=== PATIENT | female | born 1970 | race Two or more races ===

== ENCOUNTER → 2024-06-26 | Outpatient (BNVA) | payer MEDICAID, SELFPAY | END | disposition home or self-care (01) | PROVIDERS: PCP Nurse Practitioner Primary Care; Referring Provider Nurse Practitioner Primary Care; Visit Provider Nurse Practitioner Primary Care | DX: M25.561 Pain in right knee (principal); G89.29 Other chronic pain; M25.562 Pain in left knee; M79.671 Pain in right foot; M17.0 Bilateral primary osteoarthritis of knee | CPT/HCPCS: 20610; 99214; J3301; J3490 ==

== ENCOUNTER → 2024-07-09 | Outpatient (BNVA) | payer MEDICAID, SELFPAY | END | disposition home or self-care (01) | PROVIDERS: PCP Nurse Practitioner Primary Care; Referring Provider Nurse Practitioner Primary Care; Visit Provider Nurse Practitioner Primary Care | DX: L50.9 Urticaria, unspecified (principal) | CPT/HCPCS: 99213 ==

== ENCOUNTER → 2024-07-10 | Outpatient (BNVA) | payer MEDICAID, SELFPAY | END | disposition home or self-care (01) | PROVIDERS: PCP Nurse Practitioner Family; Referring Provider Nurse Practitioner Family; Visit Provider Nurse Practitioner Family | DX: Z30.42 Encounter for surveillance of injectable contraceptive (principal) | CPT/HCPCS: 96372; 99214; J1050 ==

== ENCOUNTER → 2024-08-07 | Outpatient (BNVA) | payer MEDICAID, SELFPAY | END | disposition home or self-care (01) | PROVIDERS: PCP Nurse Practitioner Family; Referring Provider Nurse Practitioner Family; Visit Provider Nurse Practitioner Family | DX: J06.9 Acute upper respiratory infection, unspecified (principal); E11.9 Type 2 diabetes mellitus without complications; E66.9 Obesity, unspecified; Z68.35 Body mass index [BMI] 35.0-35.9, adult | CPT/HCPCS: 87804; 87811; 99213 ==

== ENCOUNTER → 2024-09-25 | Outpatient (BNVA) | payer MEDICAID, SELFPAY | END | disposition home or self-care (01) | PROVIDERS: PCP Nurse Practitioner Family; Referring Provider Nurse Practitioner Family; Visit Provider Nurse Practitioner Family | DX: Z30.42 Encounter for surveillance of injectable contraceptive (principal) | CPT/HCPCS: 81025; 96372; 99214; 99215; J1050 ==

== ENCOUNTER → 2024-11-02 | Outpatient (BNVA) | payer MEDICAID, SELFPAY | END | disposition home or self-care (01) | PROVIDERS: PCP Nurse Practitioner Family; Referring Provider Nurse Practitioner Family; Visit Provider Nurse Practitioner Family | DX: E11.9 Type 2 diabetes mellitus without complications (principal); E66.9 Obesity, unspecified; Z12.11 Encounter for screening for malignant neoplasm of colon | CPT/HCPCS: 99213 ==

== ENCOUNTER → 2024-11-05 | Outpatient (BNVA) | payer MEDICAID, SELFPAY | END | disposition home or self-care (01) | PROVIDERS: PCP Nurse Practitioner Family; Referring Provider Nurse Practitioner Family; Visit Provider Nurse Practitioner Family | DX: Z71.2 Person consulting for explanation of examination or test findings (principal); E11.9 Type 2 diabetes mellitus without complications; E66.9 Obesity, unspecified; E78.5 Hyperlipidemia, unspecified | CPT/HCPCS: 99213 ==

== ENCOUNTER → 2024-11-09 | Outpatient (BNVA) | payer MEDICAID, SELFPAY | END | disposition home or self-care (01) | PROVIDERS: PCP Nurse Practitioner Family; Referring Provider Nurse Practitioner Family; Visit Provider Nurse Practitioner Family | DX: F45.42 Pain disorder with related psychological factors (principal) | CPT/HCPCS: 99212; G0463 ==

== ENCOUNTER → 2024-11-23 | Outpatient (BNVA) | payer MEDICAID, SELFPAY | END | disposition home or self-care (01) | PROVIDERS: PCP Nurse Practitioner Family; Referring Provider Nurse Practitioner Family; Visit Provider Nurse Practitioner Family | DX: Z71.2 Person consulting for explanation of examination or test findings (principal); Z12.11 Encounter for screening for malignant neoplasm of colon | CPT/HCPCS: 99212; G0463 ==

== ENCOUNTER → 2024-12-31 | Outpatient (BNVA) | payer MEDICAID, SELFPAY | END | disposition home or self-care (01) | PROVIDERS: PCP Nurse Practitioner Family; Referring Provider Nurse Practitioner Family; Visit Provider Nurse Practitioner Primary Care | DX: N76.89 Other specified inflammation of vagina and vulva (principal) | CPT/HCPCS: 99214; 99215 ==

== ENCOUNTER → 2025-01-08 | Outpatient (BNVA) | payer MEDICAID, SELFPAY | END | disposition home or self-care (01) | PROVIDERS: PCP Nurse Practitioner Primary Care; Referring Provider Nurse Practitioner Primary Care; Visit Provider Nurse Practitioner Primary Care | DX: Z71.2 Person consulting for explanation of examination or test findings (principal) | CPT/HCPCS: 99212; G0463 ==

== ENCOUNTER → 2025-02-06 | Outpatient (BNVA) | payer MEDICAID, SELFPAY | END | disposition home or self-care (01) | PROVIDERS: PCP Nurse Practitioner Family; Referring Provider Nurse Practitioner Family; Visit Provider Nurse Practitioner Family | DX: E78.5 Hyperlipidemia, unspecified (principal); E11.9 Type 2 diabetes mellitus without complications; E66.9 Obesity, unspecified; Z76.0 Encounter for issue of repeat prescription | CPT/HCPCS: 99212; G0463 ==

== ENCOUNTER 2025-07-11 18:29 | Emergency (ER) | payer MEDICAID, SELFPAY ==
[2025-07-11 18:31] VITALS: BMI 34.0
[2025-07-11 18:37] VITALS: BP 146/94; PULSE 77; RESP 18; TEMP 36.8; O2SAT 98
--- NOTE | 2025-07-11 19:38 | EDNOTE_ITS ---
ED Skin Abcess FB-RME/HPI General Chief complaint: Skin/Abscess/Foreign Body Stated complaint: PIMPLE TO UPPER BACK Time Seen by Provider: 07/11/25 18:36 Source: patient and new business clerk Arrival date/time: 07/11/25 18:29 Mode of arrival: ambulatory Limitations: language barrier RME / HPI RME / HPI narrative: Patient is an obese 54-year-old Stateless-speaking only female who arrives to the ED today for evaluation of an abscess to her upper back for the past several weeks. Patient has a long history of this abscess being dealt with in the past. Patient states that a few weeks back it began to become inflamed again. Patient arrives with a large well centralized abscess noted to the back. Patient denies any fever nausea or vomiting. Related Data Home Medications ?Medication ?Instructions ?Recorded ?Confirmed omeprazole 20 mg capsule,delayed 20 mg PO QDAY 4 02/06/25 release Previous Rx's ?Medication ?Instructions ?Recorded blood-glucose meter #1 ea 05/10/24 blood sugar diagnostic (True #100 ea 09/25/24 Metrix Glucose Test Strip) clotrimazole 1 % vaginal cream 1 appful vaginal QHS #4 5 grams 12/31/24 fluconazole 150 mg tablet 150 mg PO Q3D 2 doses #2 tab s 12/31/24 evolocumab 140 mg/mL subcutaneous 140 mg subcut .every 2 weeks 02/06/25 syringe (Repatha Syringe) days #2 mL lancets #200 ea 02/06/25 metformin 500 mg tablet 500 mg PO QDAY #90 tabs 04/25 semaglutide 2 mg/dose (8 mg/3 mL) 2 mg (0.75 mL) subcu t QWEEK 30 02/06/25 subcutaneous pen injector (Ozempic) days #3 mL cephalexin 250 mg capsule 250 mg PO Q8H 7 days #21 cap s 07/11/25 ibuprofen 600 mg tablet (IBU) 600 mg PO Q8H PRN pain # 14 tabs 07/11/25 Allergies Allergy/AdvReac Type Severity Reaction Status Date / Time No Known Allergies Allergy Verified 07/11/25 18:31 Review of Systems Review of Systems Systems Reviewed: All systems reviewed, normal except as documented Past Medical History Past Medical History CARDIAC: Positive Hypercholesterolemia and Hypertension; Negative Congestive Heart Failure RESPIRATORY: Negative Chronic Obstructive Pulmonary Disease (COPD) GENITOURINARY: Negative Renal Disease ENDOCRINE: Positive Diabetes Mellitus Type 2; Negative Diabetes Mellitus Type 1 PSYCHO/SOCIAL: Positive Depression and Anxiety Social History SMOKING STATUS: Never smoker SECOND HAND EXPOSURE: Yes (WORK) SUBSTANCE USE: does not use ED Exam Narrative Physical exam: Patient displays a large centralized abscess to her central back. General Limitations: Present language barrier General appearance: Present alert and in no apparent distress Head Head exam: Present atraumatic Eye Eye exam: Present normal appearance, PERRL and EOMI ENT ENT exam: Present normal exam, normal oropharynx and mucous membranes moist Neck Neck exam: Present normal inspection, full ROM and trachea midline Chest Chest inspection: Present normal inspection and symmetric chest wall rise Respiratory Respiratory exam: Present normal lung sounds bilaterally Cardiovascular Cardiovascular exam: Present regular rate, normal rhythm and normal heart sounds Abdominal Exam Abdominal exam: Present soft and normal bowel sounds Extremities Exam Extremities exam: Present normal inspection and full ROM Back Exam Back exam: Present normal inspection and full ROM Neurological Exam Neurological exam: Present alert, oriented X3 and CN II-XII intact Psychiatric Psychiatric exam: Present normal affect and normal mood Skin Skin exam: Present warm, dry and other (Patient displays a quarter sized confluent abscess to her near central back on the upper portion. No drainage, but confluence appreciated. Mild localized erythema.) Course Quality Measures none Orders Category Date Time Status Lidocaine 1% Vial 20 ml [Xylocaine 1% 20 ML] Med 07/11/25 18:40 Discontinued 20 ml INFL X1 ONE TET,DIP/PERT AC (Adult)-Tdap [Boostrix Adult (Tdap) Med 07/11/25 18:40 Discontinued Vacc] 0.5 ml IMI .ONCE ONE As noted above Vital Signs Vital signs: Vital Signs Temperature 98.3 F 07/11/25 18:37 Pulse Rate 77 07/11/25 18:37 Respiratory Rate 18 07/11/25 18:37 Blood Pressure 146/94 H 07/11/25 18:37 Pulse Oximetry (%) 98 07/11/25 18:37 Oxygen Delivery Method Room Air 07/11/25 18:37 As noted above PROCEDURES: Abscess I/D Site: back Sedation/analgesia: none Local Anesthetic: lidocaine 1% Amount of anesthesia used (mL): 1 Technique: incised with #11 blade Amount of fluid expressed (mL): 2 Irrigation: No Packing used?: none Complications: other (No complications. Clean dressing applied) Skin / Abscess / Foreign Body MDM Narrative MDM Narrative:: Patient tolerated I&D procedure well. Copious serosanguineous discharge with chunks appreciated. Clean dressing was applied. Advised patient relizen to box as directed to completion as well as warm compresses to aid in the healing process. Pain medication as needed. Patient data External records reviewed:: [facility] previous records Clinical information provided by:: patient Social determinants that could affect healthcare access:: none Patient has the following chronic illnesses:: None How is presenting disease/condition affected by chronic disease/condition?: no chronic disease Evaluation data The following diagnostics were reviewed and interpreted by me:: other (specify) (None) Lab and/or radiology exams considered but not ordered:: None Interpretation Summary: None Medications / Prescriptions Medications or Prescriptions considered but not ordered:: None Medication administrations:: Medication Administration History Discontinued Medications Diphtheria/Tetanus/Acell Pertussis (Diphth,Pertuss(Acell),Tet Vac 0.5 Ml Syr- Adult) 0.5 ml IMi .ONCE ONE Stop: 07/11/25 18:41 Lidocaine HCl (Lidocaine Hcl 1% 20 Ml Vial) 20 ml INFL X1 ONE Stop: 07/11/25 18:41 As noted above Consultations Consultation(s) initiated? (list below): No Diagnosis Skin/Abscess Differential Diagnosis: abscess of skin or subcutaneous tissue Most likely diagnosis given after review of the tests above:: Skin abscess Admission Indicated Admission indicated?: not indicated Admission Request Was there a request for admission?: No Disposition Plan Disposition Plan: Discharge Discharge Attestation Discharge Attestation: The patient and all family members were given an opportunity to ask questions and understood the discharge instructions. Discharge instructions specifically effects, indications for sooner follow up or return to the emergency department, and the expected course of current diagnosis. Patient condition: Stable Discharge Plan Plan Patient Disposition: HOME (Self Care) Prescriptions/Referrals Prescriptions/Med Rec: New cephalexin 250 mg capsule 250 mg PO Q8H 7 Days Qty: 21 0RF ibuprofen [IBU] 600 mg tablet 600 mg PO Q8H PRN (Reason: pain) Qty: 14 0RF No Action omeprazole 20 mg capsule,delayed release(DR/EC) 20 mg PO QDAY (DME) True Metrix Glucose Test Strip Strip See Rx Instructions .ROUTE .MEDSUPPLY Qty: 100 2RF Rx Instructions: Check blood sugar once a day clotrimazole 1 % cream 1 appful vaginal QHS Qty: 45 0RF fluconazole 150 mg tablet 150 mg PO Q3D Qty: 2 0RF Rx Instructions: may repeat second dose 72 hrs after first dose if symptoms persist Repatha Syringe 140 mg/mL syringe 140 mg subcut .every 2 weeks 30 Days Qty: 2 6RF Ozempic 2 mg/dose (8 mg/3 mL) pen injector 2 mg subcut QWEEK 30 Days Qty: 3 2RF metformin 500 mg tablet 500 mg PO QDAY Qty: 90 0RF (DME) lancets Misc See Rx Instructions .Route Qty: 200 0RF Rx Instructions: Check blood sugar twice a day (DME) blood-glucose meter Misc See Rx Instructions .ROUTE .MEDSUPPLY Qty: 1 0RF Rx Instructions: As directed Problem List Clinical Impression: Abscess of skin Patient/Caregiver Discharge Instructions Other Activity Instructions:: Advised patient would like antibiotics as directed to completion as well as pain medication as needed. Education Materials: ED Abscess, Incision And Drainage Additional Instructions: Advised patient to lyse antibiotics as directed to completion as well as pain medication as needed. Warm compresses to aid in complete drainage. Print Language: Stateless Stand Alone Forms: [employer] Award Info., Patient Portal Info Letter
[2025-07-11] MEDS: LIDOCAINE HCL 1% 20 ML VIAL INFL (20:13)
[2025-07-11] MEDS: DIPHTH,PERTUSS(ACELL),TET VAC 0.5 ML SYR- ADULT IMi (20:14)
== END 2025-07-11 20:56 | disposition home or self-care (01) ==
LOC: SERX 20:05
PROVIDERS: Emergency Provider Emergency Medicine
DX: L02.212 Cutaneous abscess of back [any part, except buttock and flank] (principal); Z23 Encounter for immunization
CPT/HCPCS: 10060; 90471; 90715; 99281; J3490